=== PATIENT | female | born 1950 | race Caucasian/White ===

== ENCOUNTER → 2017-05-02 | Outpatient (CLI) | payer MEDICARE ==
[~2017-05-02] MED LIST: ACET-1600 PO; ASPI-621 PO; ASPI-650 PO; CALCIUM PO; CELE100C PO; DIAZ5TAB PO; DOCU-30 PO; GABA600T PO; HYDR-3240 PO; IBUP800T PO; LOSA25TA5 PO; MAGNESIUM PO; TRAM50TA2 PO; VITAMIN B PO; VITAMIN C PO; VITAMIN E PO; ZINC PO
[2017-05-02 11:58] LABS: ASPARTATE AMINO TRANSFERASE 24 U/L (15-37); BLOOD UREA NITROGEN 16 mg/dL (7-18)
[2017-05-02 13:08] LABS: HIV 1&2 ANTIBODY SCREEN Nonreactive (Nonreactive); HIV-1 p24 ANTIGEN Nonreactive (Nonreactive)
== END | disposition home or self-care (01) ==
LOC: STAR 10:36
PROVIDERS: ATTEND Orthopaedic Surgery
DX: Z01.818 Encounter for other preprocedural examination (principal); M87.851 Other osteonecrosis, right femur; R94.31 Abnormal electrocardiogram [ECG] [EKG]; R79.89 Other specified abnormal findings of blood chemistry; R79.1 Abnormal coagulation profile
CPT/HCPCS: 36415; 80053; 81003; 83036; 85025; 85610; 85730; 86703; 87081; 87899; 93005; G0435

== ENCOUNTER 2017-05-13 09:48 | Inpatient (IN) | payer MEDICARE ==
[2017-05-02 10:58] VITALS: BP 129/89
[~2017-05-13] VITALS: Ht 167.6 cm; Wt 75.5 kg
[2017-05-13] MEDS ORDERED: LACTATED RINGERS 1,000 ML IV SCH (10:17)
[2017-05-13] MEDS ORDERED: LIDOCAINE 1%, 2ML SQ PRN (10:30)
[2017-05-13] MEDS ORDERED: OxyconTIN ER 10 MG TAB.ER PO ONE (10:30)
[2017-05-13] MEDS ORDERED: VANCOMYCIN PER PHARMACY MC PRN ×2 (10:30→14:30)
[2017-05-13] MEDS ORDERED: VANCOMYCIN 1,500 MG in SODIUM CHLORIDE 0.9% 250 ML IV ONE (10:30)
[2017-05-13] MEDS ORDERED: OxyconTIN ER 10 MG TAB.ER ONE (11:10)
[2017-05-13] MEDS ORDERED: SODIUM CHLORIDE 0.9% 50 ML ONE (11:34)
[2017-05-13] MEDS ORDERED: KETOROLAC 60 MG/2 ML ONE (11:34)
[2017-05-13] MEDS ORDERED: EPINEPHRINE 1 MG/ML, 1ML ONE (11:34)
[2017-05-13] MEDS ORDERED: TRANEXAMIC ACID 100 MG/ML, 10ML ONE (11:34)
[2017-05-13] MEDS ORDERED: ROPIvacaine/PF 0.2%, 20 ML ONE (11:34)
[2017-05-13] MEDS ORDERED: MIDAZOLAM 1 MG/ML, 2ML ONE (11:50)
[2017-05-13] MEDS ORDERED: FENTANYL PF 100 MCG/2ML ONE (11:51)
[2017-05-13] MEDS ORDERED: KETAMINE 10 MG/ML, 20ML ONE (11:53)
[2017-05-13] MEDS ORDERED: MIDAZOLAM 1 MG/ML, 2ML IV PRN (12:00)
[2017-05-13] MEDS ORDERED: MEPERIDINE/PF 25MG/0.5ML IVPush PRN (12:00)
[2017-05-13] MEDS ORDERED: ONDANSETRON 2MG/ML, 2ML IVPush PRN (12:00)
[2017-05-13] MEDS ORDERED: OXYcodone 5 MG/5 ML ORAL.SOL UDC PO PRN (12:00)
[2017-05-13] MEDS ORDERED: PROMETHAZINE 25 MG/ML, 1ML IV PRN (12:00)
[2017-05-13] MEDS ORDERED: HYDROmorphone 1 MG/ML, 1ML IV PRN ×2 (12:00→14:30)
[2017-05-13] MEDS ORDERED: hydrALAzine 20 MG/ML, 1ML IV PRN (12:00)
[2017-05-13] MEDS ORDERED: LABETALOL 5MG/ML, 20ML IV PRN (12:00)
[2017-05-13] MEDS ORDERED: ACETAMINOPHEN 325 MG TABLET PO PRN (12:00)
[2017-05-13] MEDS ORDERED: FENTANYL PF 100 MCG/2ML IV PRN (12:00)
[2017-05-13] MEDS ORDERED: ONDANSETRON 2MG/ML, 2ML ONE (12:13)
[2017-05-13] MEDS ORDERED: NEOSTIGMINE 1 MG/ML, 10ML ONE (12:13)
[2017-05-13] MEDS ORDERED: DEXAMETHASONE 4 MG/ML, 1ML ONE (12:13)
[2017-05-13] MEDS ORDERED: CEFAZOLIN 1,000 MG ONE (12:13)
[2017-05-13] MEDS ORDERED: PROPOFOL 10 MG/ML, 20ML ONE (12:13)
[2017-05-13] MEDS ORDERED: ONDANSETRON 2MG/ML, 2ML IV PRN (14:30)
[2017-05-13] MEDS ORDERED: ONDANSETRON 4 MG TABLET PO PRN (14:30)
[2017-05-13] MEDS ORDERED: MAGNESIUM HYDROXIDE 8%, 30ML UDC PO PRN (14:30)
[2017-05-13] MEDS ORDERED: DIAZEPAM 5 MG TABLET PO PRN (14:30)
[2017-05-13] MEDS ORDERED: DIPHENHYDRAMINE 50 MG CAPSULE PO PRN (14:30)
[2017-05-13] MEDS ORDERED: PROMETHAZINE 12.5 MG SUPP PR PRN (14:30)
[2017-05-13] MEDS ORDERED: VANCOMYCIN PMX 1GM/200ML 200 ML IVPB SCH (14:30)
[2017-05-13] MEDS ORDERED: BISACODYL 10 MG SUPP PR PRN (14:30)
[2017-05-13] MEDS ORDERED: ACETAMINOPHEN 650 MG/20.3 ML UDC PO PRN (14:30)
[2017-05-13] MEDS ORDERED: GLYCOPYRROLATE 0.2MG/1ML ONE (14:39)
[2017-05-13] MEDS ORDERED: OXYcodone 5 MG/5 ML ORAL.SOL UDC ONE (14:40)
[2017-05-13] MEDS ORDERED: PHARMACOKINETIC CONSULTATION MC ONE (16:30)
[2017-05-13] MEDS ORDERED: PHARMACOKINETIC MONITORING MC PRN (16:30)
[2017-05-13] MEDS ORDERED: SCOPOLAMINE PATCH, 1.5MG PATCH.TD72 TD SCH (16:30)
[2017-05-13] MEDS: D5%-0.45NACL+KCL 20MEQ 1,000 ML IV SCH (16:37)
[2017-05-13 21:29] VITALS: BP 119/76
[2017-05-13] MEDS: CEFAZOLIN PMX 1GM/50ML 50 ML IVPB SCH (22:52)
[2017-05-13] MEDS: OXYcodone IR 5MG TABLET PO PRN (22:53)
[2017-05-13 23:45] VITALS: BP 103/71
[2017-05-14] MEDS: D5%-0.45NACL+KCL 20MEQ 1,000 ML IV SCH (02:22)
[2017-05-14 03:45] VITALS: BP 102/65
[2017-05-14] MEDS ORDERED: DEXAMETHASONE 4 MG/ML, 1ML IVPush SCH (06:00)
[2017-05-14] MEDS: CEFAZOLIN PMX 1GM/50ML 50 ML IVPB SCH (06:27)
[2017-05-14] MEDS: OXYcodone IR 5MG TABLET PO PRN (06:34)
[2017-05-14 07:56] VITALS: BP 112/73
[2017-05-14] MEDS ORDERED: TAMSULOSIN 0.4 MG CAP.ER.24H PO SCH (09:00)
[2017-05-14] MEDS ORDERED: HYDROcodone/APAP 5/325 TABLET PO PRN (11:00)
[2017-05-14] MEDS ORDERED: VANCOMYCIN 1,500 MG in SODIUM CHLORIDE 0.9% 250 ML IV SCH (11:00)
[2017-05-14] MEDS ORDERED: DOCU-30 PO ×2 (13:46→13:56)
[2017-05-14] MEDS ORDERED: ASPI-621 PO (13:48)
[2017-05-14] MEDS ORDERED: ONDA4TAB10 BC (13:57)
[2017-05-14] MEDS ORDERED: CELE200C PO (13:58)
[2017-05-14] MEDS ORDERED: HYDR-3240 PO (13:59)
[2017-05-14] MEDS ORDERED: DIAZ5TAB PO (14:00)
[2017-05-14] MEDS ORDERED: KETOROLAC 30 MG/1 ML IV SCH (16:30)
[2017-05-14] MEDS ORDERED: ASPIRIN 81 MG TABLET EC PO SCH (18:00)
== END 2017-05-14 14:18 | disposition home or self-care (01) | DRG 470 ==
LOC: ORIP 09:48 → 4NOR 16:00
PROVIDERS: ADMIT Orthopaedic Surgery; ATTEND Orthopaedic Surgery
PROC: 0SR902Z Replacement of Right Hip Joint with Metal on Polyethylene Synthetic Substitute, Open Approach (ICD-10-PCS; principal; 2017-05-13 12:00)
DX: M16.11 Unilateral primary osteoarthritis, right hip (principal)
CPT/HCPCS: 36415; 72170; 82565; 85014; 85018; 86850; 86900; C1713; J0171; J0690; J1100; J1885; J2250; J2405; J2704; J2710; J2795; J3010; J3370; C1776; J3480; J7050; J7120